=== PATIENT | male | born 1990 | race African-American/Black ===

== ENCOUNTER 2016-09-22 15:49 | Emergency (ER) | payer SELFPAY ==
[~2016-09-22] VITALS: Ht 182.9 cm; Wt 81.6 kg
[2016-09-22 16:01] VITALS: BP 121/67
== END 2016-09-22 17:16 | disposition home or self-care (01) ==
LOC: ER 15:58
DX: R30.0 Dysuria (principal); R35.0 Frequency of micturition; M54.5 Low back pain

== ENCOUNTER 2016-09-29 14:01 | Emergency (ER) | payer SELFPAY ==
[~2016-09-29] VITALS: Ht 182.9 cm; Wt 81.6 kg
[2016-09-29 17:11] VITALS: BP 130/79
== END 2016-09-29 17:59 | disposition home or self-care (01) ==
LOC: ER 14:03
DX: B37.9 Candidiasis, unspecified (principal); Z88.1 Allergy status to other antibiotic agents